=== PATIENT | female | born 1990 | race American Indian/Alaskan Native ===

== ENCOUNTER 2016-09-21 05:42 | Emergency (ER) | payer OTHER ==
[2016-09-21 06:32] VITALS: BP 135/86
[2016-09-21] MEDS ORDERED: TORADOL IM ONE (08:16)
[2016-09-21] MEDS ORDERED: FLEXERIL PO ONE (08:16)
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
--- NOTE | 2016-09-21 10:14 | XRay Report ---
LUMBOSACRAL SPINE, 3 VIEWS: History: Back pain Findings: The vertebral bodies, disk spaces and posterior elements are intact. No compression deformity or malalignment. The SI joints are symmetric and unremarkable. Impression: 1. No evidence for acute injury to the lumbar spine.
--- NOTE | 2016-09-21 10:14 | XRay Report ---
RIGHT TIBIA/FIBULA: History: Right leg pain. AP and lateral views of the right tibia/fibula demonstrate normal mineralization and contours for this patient's age. No destructive changes are noted and the adjacent soft tissues are normal. IMPRESSION: Unremarkable right tibia/fibula.
== END 2016-09-21 11:01 | disposition home or self-care (01) ==
LOC: ED 05:42
DX: S80.11XA Contusion of right lower leg, initial encounter (principal); M54.5 Low back pain; I10 Essential (primary) hypertension; V89.2XXA Person injured in unspecified motor-vehicle accident, traffic, initial encounter; Y93.89 Activity, other specified; Y99.8 Other external cause status; Y92.488 Other paved roadways as the place of occurrence of the external cause
CPT/HCPCS: 72100; 73590; 81025; 96372; 99283; J1885